=== PATIENT | male | born 1985 | race Caucasian/White ===

== ENCOUNTER 2019-05-12 08:53 | Emergency (ER) | payer OTHER ==
[2019-05-12 09:24] VITALS: BP 126/71
--- NOTE | 2019-05-12 09:41 | ED ---
Throat Pain/Nasal Congestion - HPI Summary HPI Summary: 34 yr old with left lower posterior molar pain, swelling. Onset the past 24 hours. The patient has pain, swelling in area of decayed tooth. Mild left facial swelling. he states his last dental appointment was about 6 years ago. He has no fever or chills. He has no other complaints. - History of Current Complaint Chief Complaint: UCDentalProblem Time Seen by Provider: 05/12/19 09:18 - Allergies/Home Medications Allergies/Adverse Reactions: Allergies Allergy/AdvReac Type Severity Reaction Status Date / Time MS Penicillins [Penicillins] Allergy Severe Swelling Verified 11/11/12 10:51 Of Face,Lips,& Throat MS Tramadol [Tramadol] AdvReac Difficulty Verified 11/11/12 10:53 urinating PMH/Surg Hx/FS Hx/Imm Hx Endocrine/Hematology History: Denies: Hx Diabetes, Hx Thyroid Disease Cardiovascular History: Denies: Hx Hypertension Respiratory History: Denies: Hx Asthma, Hx Chronic Obstructive Pulmonary Disease (COPD) GI History: Denies: Hx Ulcer Infectious Disease History: No Infectious Disease History: Denies: Hx Hepatitis, Hx Human Immunodeficiency Virus (HIV), Traveled Outside the [place] in Last 30 Days - Family History Known Family History: Positive: None - Social History Alcohol Use: None Substance Use Type: Reports: None Smoking Status (MU): Light Every Day Tobacco Smoker Type: Cigarettes Amount Used/How Often: 4 Length of Time of Smoking/Using Tobacco: 17 years Have You Smoked in the Last Year: Yes Review of Systems Positive: Dental Pain All Other Systems Reviewed And Are Negative: Yes Physical Exam Triage Information Reviewed: Yes Vital Signs On Initial Exam: Initial Vitals Temp Pulse Resp BP Pulse Ox 98.3 F 75 16 126/71 100 05/12/19 09:19 05/12/19 09:19 05/12/19 09:19 05/12/19 09:19 05/12/19 09:19 Vital Signs Reviewed: Yes Appearance: Positive: Well-Appearing, No Pain Distress Skin: Positive: Warm, Skin Color Reflects Adequate Perfusion Head/Face: Positive: Normal Head/Face Inspection Eyes: Positive: EOMI ENT: Positive: Pharynx normal Dental: Positive: Gross Decay/Caries @ - tooth 18 with decay, and tenderness Neck: Positive: Nontender, No Lymphadenopathy Respiratory/Lung Sounds: Positive: Clear to Auscultation, Breath Sounds Present Cardiovascular: Positive: RRR. Negative: Murmur Abdomen Description: Negative: Distended Musculoskeletal: Positive: Strength/ROM Intact Neurological: Positive: Alert, Oriented to Person Place, Time, Speech Normal Psychiatric: Positive: Normal Diagnostics - Vital Signs Vital Signs Temp Pulse Resp BP Pulse Ox 05/12/19 09:19 98.3 F 75 16 126/71 100 - Laboratory Lab Statement: Any lab studies that have been ordered have been reviewed, and results considered in the medical decision making process. EENT Course/Dx - Course Course Of Treatment: 34 yr old with left facial swelling and tenderness. There are cavities of the lower posterior molars on left side. Mild tenderenss over the left side angle mandible. - Diagnoses Provider Diagnoses: Dental abscess Discharge - Sign-Out/Discharge Documenting (check all that apply): Patient Departure All imaging exams completed and their final reports reviewed: No Studies - Discharge Plan Condition: Good Disposition: HOME Prescriptions: Clindamycin Cap(NF) [Clindamycin Cap 300 mg Cap(NF)] 300 mg PO Q6H #40 cap Patient Education Materials: Dental Abscess (ED) Referrals: [facility] [place] [facility] REFERRAL [Outside] - 2 Days No Primary Care Phys,NOPCP [Primary Care Provider] - - Billing Disposition and Condition Condition: GOOD Disposition: Home
== END 2019-05-12 09:45 | disposition home or self-care (01) ==
LOC: UCCORT 08:53
DX: K04.7 Periapical abscess without sinus (principal); E22.0 Acromegaly and pituitary gigantism; Z88.5 Allergy status to narcotic agent; F17.210 Nicotine dependence, cigarettes, uncomplicated
CPT/HCPCS: 99202; G0463